=== PATIENT | male | born 1960 | race Caucasian/White ===

== ENCOUNTER 2023-05-07 12:31 | Emergency (ER) | payer OTHER, SELFPAY ==
[2023-05-07 12:55] VITALS: BP 115/88; PULSE 144; RESP 18; TEMP 37.1; O2SAT 97
--- NOTE | 2023-05-07 13:06 | ED.SKABFB ---
HPI - Skin/Abscess/Foreign Bdy General Chief complaint: Skin/Abscess/Foreign Body Stated complaint: Left Armpit Bump/Left Foot Pain Time Seen by Provider: 05/07/23 13:06 Source: patient Mode of arrival: ambulatory Limitations: no limitations History of Present Illness HPI narrative: 63-year-old male with no significant medical history presents today with complaint of abscess to left axilla, pain to bottom of right foot. Reports right foot has been bothering him for approximately the last 8 months. Is using an [id number] wart remover with no relief of symptoms. States that skin to the area that is painful is harder than the rest of skin. Patient's heart rate elevated in the in triage. EKG a flutter with RVR. Patient states at night he has noticed that heart does not seem to be beating right . No chest pain or shortness of breath. All systems reviewed and negative except as noted above. Related Data Home Medications Medication Instructions Recorded Confirmed No Home Medications 05/07/23 05/07/23 Allergies Allergy/AdvReac Type Severity Reaction Status Date / Time No Known Allergies Allergy Verified 05/07/23 12:56 Review of Systems Review of Systems: CONSTITUTIONAL: Denies fever, chills, or sweats. EYES: Denies visual changes, redness, or discharge. ENT: Denies rhinorrhea, congestion, sore throat, or otalgia. CARDIOVASCULAR: Denies chest pain, palpitations, or edema. Reports heart rate not beating normally. RESPIRATORY: Denies cough or dyspnea. GASTROINTESTINAL: Denies abdominal pain, nausea, vomiting, or diarrhea. GENITOURINARY: Denies dysuria or hematuria. SKIN: Denies rash or itching. Reports abscess to left axilla, corn to bottom of right foot. MUSCULOSKELETAL: Denies back pain, joint pain, or myalgia. NEUROLOGIC: Denies headache, numbness, or weakness. PSYCHIATRIC: Denies anxiety or depression. All other systems reviewed are negative, except as documented in HPI. PMFSH Comments At time of signature, agree with nursing past medical, surgical, social and family history. There is no relevant family history pertinent to the presenting complaint. Exam Narrative: GENERAL: This is a well-nourished, well-developed patient, in no apparent distress. HEAD: normocephalic, atraumatic. EYES: PERRL. Sclera clear/white. Vision is grossly intact. EARS: External ears normal NOSE: External nose normal NECK: Neck supple, non-tender without lymphadenopathy, masses or thyromegaly. CARDIOVASCULAR: irregular heart rate and rhythm without murmurs, gallops, or rubs. RESPIRATORY: Clear to auscultation. Breath sounds equal bilaterally. No wheezes, rales, or rhonchi. SKIN: warm, Dry, intact with no suspicious lesions or rash, good texture and turgor. NEURO: awake, alert, and oriented to person, place and time. There were no obvious focal neurologic abnormalities. EXTREMITIES: No joint tenderness, effusion, or edema noted. Course Course Level of Care: Express Care Visit Vital Signs Vital signs: Vital Signs Temperature 37.1 C 05/07/23 12:55 Pulse Rate 144 H 05/07/23 12:55 Respiratory Rate 18 05/07/23 12:55 Blood Pressure 115/88 05/07/23 12:55 Pulse Oximetry 97 05/07/23 12:55 Oxygen Delivery Room Air 05/07/23 12:55 Temperature 37.1 C 05/07/23 12:55 Pulse Rate 144 H 05/07/23 12:55 Respiratory Rate 18 05/07/23 12:55 Blood Pressure 115/88 05/07/23 12:55 Pulse Oximetry 97 05/07/23 12:55 Oxygen Delivery Room Air 05/07/23 12:55 reviewed Transfer Transfered to: [facility]: ALS Transfer rationale: HR 145, aflutter with RVR Accepting physician: Dr. Simpson MDM - Skin/Abscess/Foreign Bdy MDM Narrative Medical decision making narrative: Patient is aware of diagnosis, understands and agrees to treatment plan. Anticipatory guidance given. Patient agrees to follow-up as directed and is aware of reasons to seek care at the emergency department
--- NOTE | 2023-05-07 13:14 | ECG_ITS ---
Measurements Intervals [place] Rate: 145 P: ME: 0 QRS: 111 QRSD: 105 T: -15 QT: 289 QTc: 449 Interpretive Statements ATRIAL FLUTTER/TACHYCARDIA WITH RAPID VENTRICULAR RESPONSE POSSIBLE RIGHT VENTRICULAR HYPERTROPHY [SOME/ALL OF: PROMINENT R IN V1, LATE TRANSITION, RAD, RADHA, SSS] NONSPECIFIC ST ABNORMALITY ABNORMAL QRS-T ANGLE [QRS-T AXIS DIFFERENCE > 60] ABNORMAL ECG NO PREVIOUS ECG AVAILABLE FOR COMPARISON Electronically Signed On 05-07-2023 16:21:14 BALLOON ARTIST by Chas Bass M.D.
== END 2023-05-07 13:21 | disposition short-term general hospital (02) ==
PROVIDERS: Emergency Provider Nurse Practitioner Family; PCP Physician Assistant
DX: I48.92 Unspecified atrial flutter (principal)
CPT/HCPCS: 93005; 99215; G0463

== ENCOUNTER 2023-05-07 13:47 | Emergency (ER) | payer OTHER, SELFPAY ==
[2023-05-07] VITALS (18 sets, daily range): BP systolic 110–144; BP diastolic 85–98; PULSE 132–146; RESP 17–26; TEMP 36.7; O2SAT 95–100
--- NOTE | ~2023-05-07 | XR_ITS ---
EXAMINATION: XR chest 1V portable DATE: 05/07/2023 14:25 INDICATION: Atrial flutter with rapid ventricular rate. Chest congestion. Chronic obstructive pulmona ry disease. TECHNIQUE: A single frontal view of the chest was obtained. COMPARISON: Chest single view 10/06/2010 FINDINGS: There are reticular opacities in the lower lung zones. No pleural effusion or pneumothorax. The heart size is normal. IMPRESSION: 1. Reticular opacities in the lower lung zones, likely mild atelectasis or chronic lung disease. Reviewed, dictated and finalized at location A. MATIC DOOR MECHANIC IMPRESSION: 1. Reticular opacities in the lower lung zones, likely mild atelectasis or water team leader darien lung disease.
--- NOTE | 2023-05-07 13:51 | ECG_ITS ---
Measurements Intervals [place] Rate: 144 P: AK: 0 QRS: 107 QRSD: 113 T: 68 QT: 287 QTc: 444 Interpretive Statements ATRIAL FLUTTER/TACHYCARDIA WITH RAPID VENTRICULAR RESPONSE POSSIBLE RIGHT VENTRICULAR HYPERTROPHY [SOME/ALL OF: PROMINENT R IN V1, LATE TRANSITION, RAD, RADHA, SSS] COMPARED TO ECG 05/07/2023 13:13:08 NO SIGNIFICANT CHANGES Electronically Signed On 05-07-2023 16:42:50 PUMP SERVICER SUPERVISOR by Roverto Holm M.D.
--- NOTE | 2023-05-07 14:19 | ED.ARRPALP ---
HPI - Arrhythmia/Palpitations General Chief Complaint: Arrhythmia/Palpitations Stated Complaint: a flutter Time Seen by Provider: 05/07/23 13:51 History of Present Illness HPI narrative: Patient is a 63-year-old male presenting with multiple complaints. Patient states that he has an abscess in his left armpit that he needs antibiotics for. He states that he has not want it incised and drained because antibiotics have worked in the past. He went to urgent care who noted that he had a heart rate in the 140s. They advised that he come to the ER for evaluation which he was agreeable to. States that he smokes a lot and he sometimes snorts cocaine. Denies chest pain or shortness of breath. Denies leg swelling. Reports productive cough. No abdominal pain, nausea vomiting, diarrhea. No further complaints. Related Data Allergies Allergy/AdvReac Type Severity Reaction Status Date / Time No Known Allergies Allergy Verified 05/07/23 12:56 Review of Systems Review of Systems: All systems reviewed & are unremarkable except as noted in HPI and below Exam Narrative: GENERAL: Nontoxic, in no acute distress, pleasant HEAD: Normocephalic, atraumatic. EYES: PERRLA and EOMI. ENT: Mucous membranes moist. NECK: Supple. CHEST: scattered wheezing bilaterally. No respiratory distress. HEART: Tachycardic, regular rate ABDOMEN: Soft, nontender, nondistended EXTREMITIES: Normal range of motion. No edema. SKIN: Warm, dry, 3 cm superficial abscess in left axilla without surrounding cellulitis NEURO: No focal deficits. Alert and oriented x3. PSYCH: Normal mood and affect. Course Vital Signs Vital signs: Vital Signs Temperature 98.0 F 05/07/23 13:53 Pulse Rate 144 H 05/07/23 13:53 Respiratory Rate 22 H 05/07/23 13:53 Blood Pressure 128/93 H 05/07/23 13:53 Pulse Oximetry 99 05/07/23 13:53 Oxygen Delivery Room Air 05/07/23 13:53 Temperature 98.0 F 05/07/23 13:53 Pulse Rate 138 H 05/07/23 17:19 Respiratory Rate 18 05/07/23 17:19 Blood Pressure 144/86 H 05/07/23 17:19 Pulse Oximetry 96 05/07/23 17:19 Oxygen Delivery Room Air 05/07/23 13:53 MDM - Arrhythmia/Palpitations MDM Narrative Medical decision making narrative: 63-year-old male presenting with left axillary abscess and tachycardia. Patient's heart rate has been in the 140s. Normotensive, saturating well on room air. EKG per my interpretation shows atrial flutter, nonspecific ST changes. Discussed with the patient that this is concerning for a new her condition and that we need to get blood work and give medicine to slow his heart rate down. Patient refuses. He states that he is willing to have a chest x-ray, a warm compress applied to his abscess, and IV antibiotics. States he does not want blood work done and he does not want I&D of the abscess. Patient given a L of fluids and a dose of IV doxycycline. Sent in for a course of doxycycline, strongly advised the patient to continue applying warm compresses and follow up very closely with his PCP. Strict return precautions were given. Patient left against medical advice ambulating steadily. Differential Diagnosis Differential diagnosis: Likely sinus tachycardia, artial fibrillation, artial flutter and other ( Abscess) Medical Records Attestation: I reviewed the patient's medical records. Imaging Data Radiologist's impression: ITS Impressions Chest X-Ray 05/07/23 14:32 IMPRESSION: 1. Reticular opacities in the lower lung zones, likely mild atelectasis or chronic lung disease. Critical Care Time Critical Care Time Critical Care Time: No Discharge Plan Discharge Clinical Impression: Atrial flutter with rapid ventricular response, Abscess of axilla, left Patient Disposition: Left Against Medical Advice Condition: Stable Instructions: Atrial Flutter (DC), Abscess (ED) Additional Instructions: Please apply warm compresses to the abscess to help
[2023-05-07] MEDS: SODIUM CHLORIDE 0.9% IV 1,000 ML 999 ML IV CONT (14:28)
[2023-05-07] MEDS: DOXYCYCLINE 100 MG/NS 100 ML 100 MG/100 ML BAG IVPB (16:10)
== END 2023-05-07 17:20 | disposition left against medical advice (07) ==
PROVIDERS: Emergency Provider Emergency Medicine; PCP Physician Assistant
DX: L02.412 Cutaneous abscess of left axilla (principal); I48.92 Unspecified atrial flutter; R91.8 Other nonspecific abnormal finding of lung field
CPT/HCPCS: 71045; 93005; 96361; 96365; 99284; J7030

== ENCOUNTER 2024-01-07 09:10 | Observation (INO) | payer OTHER, SELFPAY ==
[2024-01-07] VITALS (9 sets, daily range): BP systolic 108–125; BP diastolic 35–97; PULSE 0–136; RESP 18–25; TEMP 36.2–36.4; O2SAT 90–98; BMI 18.0
--- NOTE | 2024-01-07 | ECHO_ITS ---
Patient Info Name: Aleks Barnard Age: 64 years : 1960 Gender: Male Ht: 69 in Wt: 131 lbs BSA: 1.69 m2 HR: 135 bpm BP: 123 / 90 mmHg Heart Rhythm: Atrial Flutter Technical Quality: Poor Exam Date: 01/07/2024 3:20 PM Exam Location: Echo Lab Patient Status: Outpatient Admit Date: 01/07/2024 Staff Ordering Physician: Nikia Capellan APRN Bend Sorter: Yanely Sanders RDCS Attending Provider: Shereen Watson MD Referring Physician: Timi TAYLOR; Exam Type: CA echo doppler color flow Study Info Indications R06.02 - Shortness of breath - Elevated BNP Complete two-dimensional, color flow and Doppler transthoracic echocardiogram is performed. Reason for Poor Study: poor patient cooperation Summary 1. Left ventricular chamber dimension is normal. 2. Left ventricular systolic function is moderately reduced, estimated at 30-35%. 3. Left atrial chamber dimension is mildly enlarged. 4. Right atrial chamber dimension is mildly enlarged. 5. There is mild to moderate mitral valve regurgitation. 6. There is mild tricuspid valve regurgitation. Left Ventricle Left ventricular chamber dimension is normal. Left ventricular systolic function is moderately reduced, estimated at 30-35%. There is no increased left ventricular wall thickness. Right Ventricle Right ventricular chamber dimension is normal. Left Atria Left atrial chamber dimension is mildly enlarged. Right Atria Right atrial chamber dimension is mildly enlarged. Atrial Septum Intact interatrial septum visualized by color flow imaging. Aortic Valve The aortic valve is not well visualized. There is mild aortic valve calcification. Pulmonic Valve The pulmonic valve is not well visualized. There is no pulmonic regurgitation. Mitral Valve There is mild to moderate mitral valve regurgitation. Tricuspid Valve There is mild tricuspid valve regurgitation. Pericardium/Pleural There is no pericardial effusion. Inferior Vena Cava Inferior vena cava is not well visualized. Aorta The aortic root size at the sinus of Valsalva is normal. Left Ventricular Outflow Tract Name Value Normal LVOT 2D LVOT Diameter 1.9 cm Pulmonic Valve Name Value Normal PV Doppler PV Peak Gradient 3 mmHg Mitral Valve Name Value Normal MV Doppler MV Decel Mcmullen 651 cm/s2 MV PHT 51 ms MV Area (PHT) 4.3 cm2 4.0-5.0 MV Diastolic Function MV E Peak Velocity 114 cm/s MV A Peak Velocity 1 cm/s MV E/A 97.2 MV Decel Time 175 ms Tricuspid
--- NOTE | ~2024-01-07 | XR_ITS ---
EXAMINATION: XR chest 1V portable DATE: 01/07/2024 10:39 INDICATION: Shortness of breath. TECHNIQUE: A single frontal view of the chest was obtained. COMPARISON: Chest single view 05/07/2023 FINDINGS: There is a diffuse interstitial pattern in the lungs. No pleural effusion or pneumothorax. The heart size is normal. IMPRESSION: 1. Worsened diffuse interstitial pattern in the lungs, consistent with mild pulmonary edema and/or ch ronic lung disease. Reviewed, dictated and finalized at location A. IMPRESSION: 1. Worsened diffuse interstitial pattern in the lungs, consistent with mild pul monary edema and/or chronic lung disease.
--- NOTE | ~2024-01-07 | CT_ITS ---
EXAMINATION: CTA chest PE protocol DATE: 01/07/2024 11:24 INDICATION: Shortness of breath. TECHNIQUE: Computed tomography angiography (CTA) of the chest was performed with 100 mL Omnipaque-350 intravenous contrast timed to evaluate the pulmonary arteries. Coronal maximum intensity projection 3D-reconstructions were created by the technologist. Automated exposure control and iterative reconst ruction technique were employed. The dose-length product was 218.18 mGy-cm. COMPARISON: Chest single view 01/07/2024 FINDINGS: There is severe emphysema. There is smooth septal thickening in the lungs, likely mild pulm onary edema. There is mild atelectasis in the inferior lungs. Calcified right hilar and mediastinal l ymph nodes are consistent with old granulomatous disease. There is mucous plugging in right lower lob e. No pleural effusion. Cardiomegaly is noted. There are coronary artery calcifications. No pericardi al effusion. There is no pulmonary embolus. There is mild mediastinal and bilateral hilar lymphadenop athy. Calcifications in the liver and spleen are consistent with old granulomatous disease. There is mild chronic anterior wedging of multiple thoracic vertebral bodies. There is severe thoracic spondyl osis. IMPRESSION: 1. No pulmonary embolus. 2. Mild pulmonary edema. 3. Severe emphysema. 4. Mild mediastinal and bilateral hilar lymphadenopathy, likely reactive. Reviewed, dictated and finalized at location A.
--- NOTE | 2024-01-07 09:20 | ECG_ITS ---
Test Date: 2024-01-07 09:22:19 Measurements Intervals [place] Rate: 134 P: 0 CT: 0 QRS: -84 QRSD: 94 T: 128 QT: 186 QTc: 278 Interpretive Statements ATRIAL FLUTTER/TACHYCARDIA WITH RAPID VENTRICULAR RESPONSE MARKED LEFT AXIS DEVIATION [QRS AXIS < -30] INCOMPLETE RIGHT BUNDLE BRANCH BLOCK [90+ ms QRS DURATION, TERMINAL R IN V1/V2, 40+ ms S IN I/aVL/V4/V5/V6] MARKED ST DEPRESSION, CONSIDER SUBENDOCARDIAL INJURY [0.2+ mV ST DEPRESSION] No previous ECG available for comparison Electronically Signed On 01-07-2024 09:31:25 CDT by Roverto Holm M.D.
--- NOTE | 2024-01-07 09:29 | ED.SOB ---
HPI - SOB/Dyspnea General Chief Complaint: Shortness of Breath/Dyspnea Stated Complaint: SOB Time Seen by Provider: 01/07/24 09:29 Source: patient and EMS Mode of arrival: EMS History of Present Illness HPI Narrative: 63 years old white male came to the ED by ambulance from home complaining of shortness of breath over the last 2 weeks getting worse on exertion and lately. He reports intermittent left chest pain, patient is telling me that he takes inhaler at home as needed, and he does not take any other medications. He smokes cigarette, lives alone. Related Data Allergies Allergy/AdvReac Type Severity Reaction Status Date / Time No Known Allergies Allergy Verified 05/07/23 12:56 Course Consultations Consultation #1: Dr. Holm Agreed with the consult Date: 01/07/24 Time: 12:22 Vital Signs Vital signs: Vital Signs Temperature 36.2 C L 01/07/24 09:14 Pulse Rate 93 01/07/24 09:14 Respiratory Rate 25 H 01/07/24 09:14 Blood Pressure 124/97 H 01/07/24 09:14 Pulse Oximetry 97 01/07/24 09:14 Oxygen Delivery Room Air 01/07/24 09:14 Temperature 36.2 C L 01/07/24 09:14 Pulse Rate 135 H 01/07/24 12:04 Respiratory Rate 25 H 01/07/24 09:14 Blood Pressure 123/93 H 01/07/24 12:04 Pulse Oximetry 97 01/07/24 09:14 Oxygen Delivery Room Air 01/07/24 09:14 MDM - SOB/Dyspnea MDM Narrative Medical decision making narrative: Patient came by ambulance from home with shortness of breath over the last few weeks, gradually getting worse Vital signs on arrival showed heart rate of 135 beats per minute, a flutter with RVR Cardizem bolus and drip started Lovenox given Physical examination showed slight labored breathing, clear lungs on auscultation except basilar rales bilaterally Differential diagnosis include CHF, coronary artery disease, a flutter with RVR, hypothyroidism, dehydration, COPD Blood workup today showedWBC of 12.0 D-dimer of 2.01/CTA rule out PE ordered, proBNP 6570, chest x-ray showed evidence of pulmonary edema Lasix 40 mg IV ordered CTA showed no PE Patient heart rate still 134 beat per minute, currently on Cardizem drip Differential Diagnosis Differential diagnosis: Likely other (As above) Lab Data 01/07/24 09:23 01/07/24 09:23 Labs: Lab Results 01/07/24 01/07/24 01/07/24 Range/Units 09:23 09:32 09:38 WBC 12.0 H (4.5-10.0) K/mm3 RBC 4.97 (4.6-6.20) M/mm3 Hgb 15.9 (14.0-18.0) g/dL Hct 48.7 (42.0-52.0) % MCV 98.0 (80-100) fl MCH 32.0 (26-34) pg MCHC 32.6 (32-36) g/dl RDW 14.6 H (11.5-14.5) % Plt Count 272 (150-375) k/mm3 MPV 8.8 (7.4-10.4) fl Immature Gran % (Auto) 0.4 (0-0.5) % Neut % (Auto) 64.0 (45.5-73.1) % Lymph % (Auto) 24.3 (18.3-44.2) % Davison % (Auto) 7.9 (2.6-8.5) % Eos % (Auto) 2.7 (0-4.4) % Baso % (Auto) 0.7 (0.2-1.2) % Lymph # (Auto) 2.90 (0.9-3.2) K/mm3 Davison # (Auto) 0.9 H (0.1-0.6) K/mm3 Eos # (Auto) 0.3 (0-0.3) K/mm3 Baso # (Auto) 0.1 (0.0-0.1) K/mm3 Abs Immat Gran (auto) 0.05 H (0.00-0.031) K/mm3 Absolute Neuts (auto) 7.7 H (1.3-6.7) K/mm3 Absolute Nucleated RBC 0.000 (0.0-0.012) K/mm3 Nucleated RBC % 0.0 (0.0-0.2) % PT 15.1 H (11.1-14.7) Seconds INR 1.1 APTT 35.9 (22.3-36.8) Seconds D-Dimer 2.01 H (<0.48) ug/mL Sodium 137 (137-145) mmol/L Potassium 4.6 (3.4-5.0) mmol/L Chloride 101 (98-107) mmol/L Carbon Dioxide 26 (22-30) mmol/L Anion Gap 10 (4-12) mmol/L BUN 17 (9-20) mg/dL Creatinine 0.80 (0.7-1.3) mg/dL Estim Creat Clear Calc Not Reportable Estimated GFR > 60 (59 - ) Glucose 94 (65-110) mg/dL Calcium 9.6 (8.4-10.2) mg/dL Total Bilirubin 1.0 (0.2-1.3) mg/dL AST 39 (17-59) U/L ALT 33 (6-50) U/L Alkaline Phosphatase 99 (38-126) U/L Troponin I 0.016 (0.000-0.034) ng/mL NT-Pro-B Natriuret Pep 6570 H (
[2024-01-07 09:36] LABS: Basophils Absolute Auto 0.1 K/mm3 (0.0-0.1); Basophils Percent Auto 0.7 % (0.2-1.2); Eosinophils Absolute Auto 0.3 K/mm3 (0-0.3); Eosinophils Percent Auto 2.7 % (0-4.4); Hematocrit 48.7 % (42.0-52.0); Hemoglobin 15.9 g/dL (14.0-18.0); Immature Granulocyte Absolute 0.05 K/mm3 (0.00-0.031); Immature Granulocyte Percent A 0.4 % (0-0.5); Lymphocytes Percent Auto 24.3 % (18.3-44.2); Mean Corpuscular HGB Conc 32.6 g/dl (32-36); Mean Platelet Volume 8.8 fl (7.4-10.4); Monocytes Absolute Auto 0.9 K/mm3 (0.1-0.6); Monocytes Percent Auto 7.9 % (2.6-8.5); Neutrophils Absolute Auto 7.7 K/mm3 (1.3-6.7); Platelet Count Result 272 k/mm3 (150-375); Red Blood Count 4.97 M/mm3 (4.6-6.20); Red Cell Distribution Width 14.6 % (11.5-14.5)
[2024-01-07] MEDS: dilTIAZem HCl INJ 25 MG/5 ML VIAL 10 MG IV PUSH (09:42)
[2024-01-07 09:50] LABS: Alanine Aminotransferase 33 U/L (6-50); Albumin Level 4.1 g/dL (3.5-5.1); Alkaline Phosphatase 99 U/L (38-126); Anion Gap 10 mmol/L (4-12); Aspartate Amino Transferase 39 U/L (17-59); Blood Urea Nitrogen 17 mg/dL (9-20); Calcium 9.6 mg/dL (8.4-10.2); Carbon Dioxide 26 mmol/L (22-30); Chloride 101 mmol/L (98-107); Estimated Glomerular Filt Rate > 60; Glucose 94 mg/dL (65-110); Potassium 4.6 mmol/L (3.4-5.0); Sodium 137 mmol/L (137-145)
[2024-01-07] MEDS: dilTIAZem 100 MG/100 ML 100 MG/100 ML BAG IV CONT (09:51)
[2024-01-07] MEDS: ENOXAPARIN 60 MG/0.6 ML SYRINGE SUB-Q (09:51)
[2024-01-07 09:54] LABS: INR 1.1; Prothrombin Time 15.1 Seconds (11.1-14.7)
[2024-01-07 09:55] LABS: Partial Thromboplastin Time 35.9 Seconds (22.3-36.8)
[2024-01-07 10:11] LABS: D Dimer 2.01 ug/mL (<0.48)
[2024-01-07 10:27] LABS: NT Pro B Type Natriuretic Pept 6570 pg/mL (19.9-100); Troponin I 0.016 ng/mL (0.000-0.034)
[2024-01-07] MEDS: FUROSEMIDE INJ 40 MG/4 ML VIAL IV PUSH (11:05)
--- NOTE | 2024-01-07 12:28 | ECG_ITS ---
Test Date: 2024-01-07 12:33:02 Measurements Intervals [place] Rate: 136 P: 0 DE: 0 QRS: 266 QRSD: 129 T: 269 QT: 345 QTc: 520 Interpretive Statements ATRIAL FLUTTER/TACHYCARDIA WITH RAPID VENTRICULAR RESPONSE INCOMPLETE RIGHT BUNDLE BRANCH BLOCK Compared to ECG 01/07/2024 09:22:19 NO SIGNIFICANT CHANGES Electronically Signed On 01-07-2024 13:05:53 CDT by Roverto Holm M.D.
--- NOTE | 2024-01-07 12:52 | PM.IMHP ---
H&P: HPI History of Present Illness Date/Time: 01/07/24 12:52 Chief Complaint: Shortness of Breath Narrative: 63 y/o M presents here with shortness of breath with PMH of COPD and tobacco use. The patient presents here from home via EMS for further evaluation of shortness of breath and epigastric pain. He reports onset approximately 2 weeks ago. Shortness of breath worsens with exertion. Accompanied by intermittent left-sided chest pain. Has utilized his home inhaler as needed, otherwise has not trialed any other medications for the symptoms. Current tobacco user. Limited HPI. During discussion about risks of leaving the patient stated that his heart has been irregular for the last few months. Patient refusing to discuss further and is electing to leave AMA. Initial VS at presentation: 97.2? F, HR 93, RR 25, 124/97, 97% on RA. ED workup showed: WBC 12.0, no anemia, PT 14.1, elevated D-dimer, no significant electrolyte derangements, creatinine 0.8 and GFR >60, BNP 6570, TSH 2.61. CXR showed worsened diffuse interstitial pattern in the lungs consistent with mild pulmonary edema and/or chronic lung disease. Chest CTA showed no PE, mild pulmonary edema, severe emphysema, and mild mediastinal and bilateral hilar lymphadenopathy likely reactive. Review of Systems Review of Systems: ROS unobtainable: Yes other (unable to obtain, patient refusal) [facility] Family History Family History Father Arthritis Cancer Mother Alzheimer dementia Social History Social History Smoking packs per day: 0.75 Smoking cigarettes per day: 15.0 Years smoked: 50 Smoking pack-years: 37.50 Smoking status: Current every day smoker Alcohol intake: never Substance use: never Do You Feel Safe in your Home?: Yes Lack of Transportation: YES Lack of Food: Often True Current Housing: I Have Housing Concerned About Future Housing: No Difficulty Paying Gas/Electric Bills: YES Difficulty Paying for Meds: No Currently Unemployed: No Education: Grade School Difficulty w/ Childcare or Family Care: No Spiritual care concerns: No Meds Home Medications and Allergies Home Medications Medication Instructions Recorded Confirmed Type No Home Medications 01/07/24 01/07/24 History Allergies Allergy/AdvReac Type Severity Reaction Status Date / Time No Known Allergies Allergy Verified 05/07/23 12:56 Vital Signs Vital Signs - 24 hr 01/07/24 09:14 01/07/24 09:51 01/07/24 10:40 Temperature 97.2 F L Pulse Rate 93 135 H 136 H Respiratory Rate 25 H Blood Pressure 124/97 H 117/35 L 108/97 H Pulse Oximetry 97 Oxygen Delivery Room Air 01/07/24 11:05 01/07/24 12:04 01/07/24 11:30 Temperature Pulse Rate 135 H 135 H 0 L Respiratory Rate Blood Pressure 111/88 123/93 H Pulse Oximetry Oxygen Delivery Exam Narrative: limited. irregular tachy. crackles bibasilar. agitated. A/Ox4. Const: Other: Mild shortness of breath, uncomfortable/agitated. , male, nontoxic appearance. HENMT: Face/Nose/Sinus: Normal nares present Mouth: Yes moist mucous membranes Eyes: General: appearance normal, both eyes and all related structures Sclera: sclerae normal Pupils: Equal, round and reactive pupils present EOM: EOMs intact bilaterally Resp: Other: Tachypneic without accessory muscle use, crackles bibasilar. Cardio: Rate: tachycardic Rhythm: abnormal rhythm Other: No murmur or rub. Skin: General skin exam: normal color Neuro: Speech: normal speech Other: A&O x4 Psych: Mental Status: mental status grossly normal Other: Good insight and judgment, agitated. H&P: Results Labs Labs: Short CBC 01/07/24 Range/Units 09:23 WBC 12.0 H (4.5-10.0) K/mm3 Hgb 15.9 (14.0-18.0) g/dL Hct 48.7 (42.0-52.0) % Plt Count 272
[2024-01-07 12:58] LABS: Troponin I 0.015 ng/mL (0.000-0.034)
--- NOTE | 2024-01-07 14:29 | PM.CNCAR ---
Assessment and Plan Assessment and plan (1) Atrial flutter with rapid ventricular response: Code(s): I48.92 - Unspecified atrial flutter Status: Acute Assessment and Plan: New diagnosis for the patient. Discussed diagnosis with the patient. Discussed management strategies of rate control vs rhythm control, risks vs benefits of each. Recommended NORMA-guided DCCV. Discussed indication for the procedure, procedure details, risks vs benefits. Patient states he will think about it and let us know his decisions. TSH level normal. Echocardiogram pending. Recommend outpatient sleep study to evaluate for JUVENAL. [id number] of 1 for possible CHF. Does not need long-term anticoagulation for stroke risk reduction. However, if he undergoes cardioversion, he will need to be on anticoagulation for 1 month following cardioversion. Started on therapeutic Lovenox, will continue for now in case he decides to proceed with NORMA-guided DCCV. If he does not undergo cardioversion, then the Lovenox can be discontinued. (2) CHF (congestive heart failure): Qualifiers: Heart failure chronicity: unspecified Heart failure type: unspecified Qualified Code(s): I50.9 - Heart failure, unspecified Code(s): I50.9 - Heart failure, unspecified Status: Suspected Assessment and Plan: Continue with IV Lasix for now given mild pulmonary edema on CTA. Echocardiogram ordered and pending. (3) COPD (chronic obstructive pulmonary disease): Qualifiers: COPD type: COPD with acute exacerbation Qualified Code(s): J44.1 - Chronic obstructive pulmonary disease with (acute) exacerbation Code(s): J44.9 - Chronic obstructive pulmonary disease, unspecified Status: Chronic Assessment and Plan: CTA shows severe emphysema, which is a new diagnosis for the patient. Management as per primary team. (4) Tobacco dependence: Code(s): F17.200 - Nicotine dependence, unspecified, uncomplicated Status: Acute Assessment and Plan: Encourage smoking cessation History of Present Illness History of Present Illness Consult date/time: 01/07/24 14:29 Requesting physician: Crystal Samaniego MD Consult reason: Other (Atrial flutter with RVR) Reason For Visit: CHF/A Flutter w RVR/ History of COPD Narrative: This is a 63 year old male with tobacco dependence who presented with shortness of breath for the past two weeks. Found to be in atrial flutter with RVR in the ED. Started on Diltiazem drip with improvement in heart rates. Patient is a long-time smoker. Smokes 1 pack per day for the past 50 years. Does not take any medications at home. No past medical history, although, he has not seen a doctor in several years. ER workup showed an elevated D-dimer. CTA was obtained due to elevated D-dimer, which showed no pulmonary embolus, severe emphysema, mild pulmonary edema, mild lymphadenopathy that is likely reactive. NT pro BNP elevated at 6570. Given elevated NT pro BNP and mild pulmonary edema, he was given IV Lasix for possible CHF. Review of Systems Review of Systems: All systems reviewed & are unremarkable except as noted in HPI and below (HPI) [facility] Family History Family History Father Arthritis Cancer Mother Alzheimer dementia Social History Social History Smoking packs per day: 0.75 Smoking cigarettes per day: 15.0 Years smoked: 50 Smoking pack-years: 37.50 Smoking status: Current every day smoker Alcohol intake: never Substance use: never Do You Feel Safe in your Home?: Yes Lack of Transportation: YES Lack of Food: Often True Current Housing: I Have Housing Concerned About Future Housing: No Difficulty Paying Gas/Electric Bills: YES Difficulty Paying for Meds: No Currently Unemployed: No Education: Grade School Difficulty w/ Childcare or Family Care: No Spiritual
[2024-01-07 15:15] LABS: Cholesterol 120 mg/dL (0-200); HDL Direct 32 mg/dL; Triglycerides 66 mg/dL (<150)
[2024-01-07 15:26] LABS: LDL Cholesterol Direct 71 mg/dL
--- NOTE | 2024-01-07 15:45 | ADMGEN ---
This patient, Aleks Barnard, was admitted to IMU Room 211-01 at 1339. Patient/family oriented to hospital policies and general routines including ID bracelet, bed and alarms, visiting hours, pain management, procedures, bathroom and other care routines, personal items, smoking policy, room service/diet, and visiting hours. Information on how to activate the Rapid Response Team has been discussed. Patient/Family are encouraged to report perceived risks to care and to ask questions if they do not understand what they are told or what they should do.
[2024-01-07 16:07] LABS: Troponin I 0.016 ng/mL (0.000-0.034)
--- NOTE | 2024-01-07 16:19 | PM.EVENT ---
Event Note Event Note Event Note: Patient is electing to leave AMA despite bedside nurse and provider discussing risks. Voiced that he was upset the echo was uncomfortable and hurt his chest as well as being upset that he had a lab draw. Risks of leaving against medical advice were discussed briefly. Patient not open to further discussion of risks or red flag symptoms that he needs to return to the emergency department for. Offered nebulizer treatment due to observed tachypnea prior to leaving, patient declined. Patient is A&Ox4.
== END 2024-01-07 15:57 | disposition left against medical advice (07) ==
LOC: ANHED 11:28 → ANHIMU 13:08
PROVIDERS: Internal Medicine; Physician Assistant; Admitting Provider General Practice; Emergency Provider Emergency Medicine; PCP Physician Assistant; Visit Provider General Practice
DX: J44.1 Chronic obstructive pulmonary disease with (acute) exacerbation (principal); I48.92 Unspecified atrial flutter; I50.9 Heart failure, unspecified; F17.210 Nicotine dependence, cigarettes, uncomplicated; Z53.29 Procedure and treatment not carried out because of patient's decision for other reasons
CPT/HCPCS: 36415; 71045; 71275; 80053; 80061; 83036; 83880; 84443; 84484; 85025; 85380; 85610; 85730; 93005; 93306; 96365; 96366; 96372; 96375; 99285; G0378; J1650; J1940; Q9967